=== PATIENT | female | born 1980 | race Caucasian/White ===

== ENCOUNTER 2019-02-07 17:18 | Emergency (ER) | payer OTHER ==
[~2019-02-07] VITALS: Ht 170.2 cm; Wt 82.1 kg
[~2019-02-07 17:18] MED LIST: LEVO150T8 PO
--- NOTE | 2019-02-07 17:28 | NUR ---
CAME ON FOR LOWER BACK PAIN x 2 DAYS. 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 TO ER BED 10, HOOKED TO MONITOR, AWAITING MD CHRISTOPHER.
--- NOTE | 2019-02-07 17:41 | NUR ---
YOSELYN CAMPBELL AT BEDSIDE
[2019-02-07] MEDS ORDERED: DEXAMETHASONE SOD PHOSPHATE 10 MG/ML VIAL ONE (17:54)
[2019-02-07] MEDS ORDERED: DEXAMETHASONE SOD PHOSPHATE 4 MG/ML VIAL IM ONE (18:00)
[2019-02-07] MEDS ORDERED: METHOCARBAMOL (500MG) 500 MG TABLET ONE (18:29)
[2019-02-07] MEDS ORDERED: METHOCARBAMOL (750MG) 750 MG TABLET PO SCH (18:30)
[2019-02-07] MEDS ORDERED: HYDROCODONE/APAP 5/325MG 1 EACH TABLET ONE (18:47)
[2019-02-07] MEDS ORDERED: HYDROCODONE/APAP 5/325MG 1 EACH TABLET PO ONE (19:00)
--- NOTE | 2019-02-07 19:13 | NUR ---
REPORT RECEIVED FROM LAQUITA NAVA FOR [facility].
--- NOTE | 2019-02-07 19:13 | NUR ---
REPORT GIVEN TO MADIHA NAVA FOR [facility]
--- NOTE | 2019-02-07 19:42 | NUR ---
PATIENT IS STILL IN PAIN. YOSELYN DELA CRUZ NOTIFIED.
[2019-02-07] MEDS ORDERED: MORPHINE SULFATE INJ 4 MG/ML DISP.SYRIN ONE (19:54)
[2019-02-07] MEDS ORDERED: ONDANSETRON 4 MG TAB.RAPDIS ONE (19:54)
[2019-02-07] MEDS ORDERED: ONDANSETRON 4 MG TAB.RAPDIS SL ONE (20:00)
[2019-02-07] MEDS ORDERED: MORPHINE SULFATE INJ 2 MG/ML DISP.SYRIN IM ONE (20:00)
--- NOTE | 2019-02-07 20:31 | NUR ---
Patient discharged to home in stable condition. Written and verbal after care instructions given. Patient verbalizes understanding of instruction. Patient is ambulatory with a steady gait. Instructed not to drive or operate behind any machinery. Daughter will drive.
[2019-02-07 20:32] VITALS: BP 114/70
== END 2019-02-07 20:32 | disposition home or self-care (01) ==
LOC: ER 17:18
DX: M54.42 Lumbago with sciatica, left side (principal); G89.29 Other chronic pain; Z79.899 Other long term (current) drug therapy
CPT/HCPCS: 96372 ×2; 99284; J1100; J2270; Q0162

== ENCOUNTER 2019-03-18 20:25 | Emergency (ER) | payer OTHER ==
[~2019-03-18] VITALS: Ht 165.1 cm; Wt 74.8 kg
[2019-03-18 20:25] VITALS: BP 140/89
--- NOTE | 2019-03-18 20:53 | NUR ---
PT CAME TO ER BED 11 C/O COUGH W/ CONGESTION. PT STATES THAT SHE HAS LOWER BACK PAIN FROM HER LAST VISIT TO THE EMERGENCY ROOM. SHE ALSO STATES THAT SHE HAS PRESSURE IN HER MAXILLARY SINUS AND FRONTAL SINUS. AAOX4. NO SOB. BREATHING EVENLY AND UNLABORED. AWAITING MD CHRISTOPHER
== END 2019-03-18 21:22 | disposition home or self-care (01) ==
LOC: ER 20:27
DX: J40 Bronchitis, not specified as acute or chronic (principal); Z79.899 Other long term (current) drug therapy